=== PATIENT | male | born 1985 ===

== ENCOUNTER 2020-08-15 17:31 | Emergency (ER) | payer MEDICAID ==
[~2020-08-15] VITALS: Ht 177.8 cm; Wt 86.0 kg
[2020-08-15] MEDS ORDERED: ACETAMINOPHEN 325MG TABLET PO STA (18:15)
[2020-08-15 19:06] LABS: BASOPHILS % 0.4 % (0.0-2.0); EOSINOPHILS % 6.1 % (0.0-5.0); HEMATOCRIT. 43.8 % (42.0-52.0); HEMOGLOBIN. 15.1 g/dL (14.0-18.0); LYMPHOCYTES % 22.5 % (20.0-50.0); MEAN CORPUSCULAR HEMOGLOBIN 31.6 pg (28.0-32.0); MEAN CORPUSCULAR VOLUME 91.7 fL (80.0-94.0); MONOCYTES % 9.7 % (2.0-8.0); NEUTROPHILS % 61.3 % (40.0-76.0); PLATELET 327 x1000/uL (130-400); RED BLOOD CELL COUNT 4.78 mill/uL (4.7-6.1); RED CELL DISTRIBUTION WIDTH 13.9 % (11.6-14.6)
[2020-08-15 19:14] LABS: PROTHROMBIN TIME 10.9 sec (9.6-11.0)
[2020-08-15 19:15] LABS: CHLORIDE 105 mEq/L (98-107)
[2020-08-15 19:17] LABS: CLARITY URINE CLEAR (CLEAR); COLOR URINE YELLOW (YELLOW); KETONES URINE NEGATIVE (NEGATIVE); LEUKOCYTE ESTERASE URINE NEGATIVE (NEGATIVE); NITRITE URINE NEGATIVE (NEGATIVE); OCCULT BLOOD URINE NEGATIVE (NEGATIVE); PH URINE 5.5 (4.5-8.0); PROTEIN URINE NEGATIVE (NEGATIVE); SPECIFIC GRAVITY URINE 1.014 (1.005-1.030); UROBILINOGEN URINE 0.2 E.U./dL (0.2-1.0)
[2020-08-15] MEDS ORDERED: IOHEXOL-300 100 ML BOTTLE ONE (23:35)
[2020-08-16 00:07] VITALS: BP 106/68
== END 2020-08-16 00:08 | disposition home or self-care (01) ==
LOC: ER 17:31
DX: M79.18 Myalgia, other site (principal); D72.829 Elevated white blood cell count, unspecified; F17.290 Nicotine dependence, other tobacco product, uncomplicated; F12.10 Cannabis abuse, uncomplicated; F31.9 Bipolar disorder, unspecified
CPT/HCPCS: 36415; 71260; 74177; 80053; 81003; 85025; 85610; 93005; 99285; Q9967